=== PATIENT | female | born 1970 | race Two or more races ===

== ENCOUNTER 2019-03-25 08:54 | Emergency (ER) | payer SELFPAY ==
[~2019-03-25] VITALS: Ht 157.5 cm; Wt 96.8 kg
[2019-03-25 09:04] VITALS: BP 139/72
[2019-03-25] MEDS ORDERED: KETOROLAC TROMETH 60MG/2ML VIAL IM ONE (10:00)
== END 2019-03-25 10:32 | disposition home or self-care (01) ==
LOC: ER 08:57
DX: M54.42 Lumbago with sciatica, left side (principal); Z88.0 Allergy status to penicillin
CPT/HCPCS: 96372; 99283; J1885